=== PATIENT | female | born 1985 | race Caucasian/White ===

== ENCOUNTER 2016-10-26 06:34 | Emergency (ER) | payer OTHER ==
[~2016-10-26] VITALS: Ht 157.5 cm; Wt 43.2 kg
[~2016-10-26 06:34] MED LIST: ACET325T51 PO; GABA-502 PO; HYDR-3740 PO; METH500T PO; NPR500T PO; PRE20 PO
[2016-10-26 06:37] VITALS: BP 132/90; PULSE 98; RESP 14; O2SAT 100
--- NOTE | 2016-10-26 06:47 | ED.REPORT ---
HPI-General Illness Date of Service Oct 26, 2016 ED Provider: Benitez San MD The patient is a 30 year old female with history of fibromyalgia who presents to the emergency department complaining of nausea and vomiting that began 3 days ago. She denies any blood in her emesis. Her last episode of vomiting was this morning. She has also experienced abdominal pain, decreased appetite, decreased PO intake, generalized weakness, fatigue, malaise, and body aches. Today she started having diarrhea. She denies blood in her stools. No one else at home is sick with similar symptoms. Nursing Notes Stated Complaint: SICK Chief Complaint: FLU/Cold Symptoms Nursing Notes Reviewed: Yes Allergies: Coded Allergies: No Known Allergies (Unverified , 12/23/15) Scheduled Gabapentin (Gabapentin) 300 Mg Capsule 300 MG PO TID Methocarbamol (Robaxin) 500 Mg Tablet 500 MG PO TID Prednisone (PredniSONE) 20 Mg Tablet 40 MG PO DAILY Scheduled PRN Acetaminophen (Acetaminophen) 325 Mg Tablet 650 MG PO DAILY PRN PRN For Fever Hydrocodone-Acetaminophen 10-325 mg (Hydrocodone-Acetaminophen 10-325 mg) 1 Each Tablet 1-2 TABLET PO Q6H PRN PRN For Pain Naproxen (Naproxen) 500 Mg Tab 500 MG PO BID PRN PRN For Pain Ondansetron ODT (Zofran ODT) 4 Mg Tablet 4 MG PO Q4H PRN PRN For Nausea General Time Seen by MD: 06:40 Chief Complaint Vomiting Hx Obtained From: Patient Arrived By: Walk-in Sudden in Onset?: Yes Onset Occurred: 3 days ago Symptom Duration: Since onset Location: : Abdomen Quality: Painful Severity: Current: Moderate Severity: Maximum: Moderate Recent Healthcare: No recent doctor visit, No recent hospitalization Similar Sx Previous: No Past Medical History Past Medical History Fibromyalgia Torticollis Torn cervical disk Past Surgical History denies Smoking History Current Every Day Smoker Social History Alcohol Use: Denies alcohol use Drug Use: THC Ambulatory Status Independent Review of Systems Full Review of Systems Constitutional: Reports: Fatigue, Malaise, Weakness - generalized GI: Reports: Abdominal pain, Anorexia, Diarrhea, Nausea, Vomiting, Denies: Bloody/tarry stool, Hematemesis, Hematochezia Musculoskeletal: Reports: Myalgia Complete sys rev & neg: except as marked. Physical Exam Vital Signs Vital Signs Date Time Temp Pulse Resp B/P Pulse Ox O2 Delivery O2 Flow Rate FiO2 10/26/16 06:37 36.1 98 14 132/90 100 Room Air Initial VS: Reviewed Head / Eyes: Atraumatic, Normocephalic, PERRL ENT: Mucous membranes moist, Conjunctiva normal, No scleral icterus Neck: Supple, Non-tender, Full range of motion Respiratory: Breath sounds normal, Clear to auscultation, No respiratory distress Cardiovascular: Regular rate & rhythm, Heart sounds normal, Intact distal pulses Lymphatic: No lymphadenopathy Extremities: Vascular intact, Neuro intact, No swelling, No tenderness Skin: Warm, Dry, No cyanosis Neurologic: Alert, Oriented, Nonfocal Psychiatric: Mood/affect normal, Behavior normal, Normal thought content General/Constitutional: Awake, Alert, Cooperative Abdomen: Soft, No guarding, No rebound, BS normoactive, No distention Tenderness/Guarding/Rebound: Negative: Tender RLQ... Mild left-sided abdominal tenderness. Interpretation & Diagnostics Lab Results Interpretation Result Diagram: 10/26/16 0730 10/26/16 0730 Test 10/26/16 07:30 White Blood Count 6.6th/mm3 (3.8-10.1) Red Blood Count 4.74mil/mm3 (3.90-5.20) Hemoglobin 15.4g/dL (12.0-15.6) Hematocrit 43.9% (35.0-46.0) Mean Corpuscular Volume 92.6fL (81-100) Mean Corpuscular Hemoglobin 32.5pg (27.0-35.0) Mean Corpuscular Hemoglobin Concent 35.1% (32.0-37.0) Red Cell Distribution Width 12.6% (12.3-15.4) Platelet Count 239bil/L (150-400) Neutrophils (%) (Auto) 61.6% (40-74) Lymphocytes (%) (Auto) 29.0% (14-46) Monocytes (%) (Auto) 8.3% (4-12) Eosinophils (%) (Auto) 0.6% (0-5) Basophils (%) (Auto) 0.3% (0-3) Sodium Level 138mEq/L (134-144) Potassium Level 4.2mEq/L (3.5-5.2) Chloride Level 101mEq/L (97-108) Carbon Dioxide Level 22mmol/L (18-29) Blood Urea Nitrogen 21mg/dL (6-20) Creatinine 0.60mg/dL (0.57-1.00) Estimat Glomerular Filtration Rate 166mL/min (>59) Glucose Level 91mg/dL (60-99) Calcium Level 9.3mg/dL (8.5-10.1) Magnesium Level 2.0mg/dL (1.6-2.6) Total Bilirubin 0.6mg/dL (0.0-1.2) Aspartate Amino Transf (AST/SGOT) 21U/L (0-50) Alanine Aminotransferase (ALT/SGPT) 18U/L (0-32) Alkaline Phosphatase 57U/L (25-150) Total Protein 7.6g/dL (6.4-8.4) Albumin 4.6g/dL (3.4-5.0) Lipase 16U/L (13-60) Hold Noel Top Tube Received (Received) Re-Eval/Medical Decision Med Decision/Clinical Course 30-year-old female with nausea vomiting diarrhea 3 days. Vital signs stable. Abdomen is soft no peritoneal signs. Labs are unremarkable. Patient felt better with 1 L normal saline and Zofran. Likely viral. Patient will be discharged home with return precautions, Zofran when necessary. Follow-up primary doctor tomorrow. Source of Hx: Old records Time of Eval: 09:05 Re-Evaluation/Progress Note: Rechecked the patient. Discussed plan for discharge. All questions were addressed. Counseled Regarding: Diagnosis, Lab results, Need for follow-up, When/why to return to ED Discharge & Departure Primary Impression: Viral syndrome Additional Impression: Nausea, vomiting, and diarrhea Disposition: Home Discharge Condition All VS Reviewed: Yes Condition: Stable Additional Instructions: Thank you for entrusting us with your care today. Your labs today are reassuring. Use Zofran as needed for your nausea and vomiting. Make sure to rest and drink fluids as tolerated. Followup with your regular doctor in the next few days. Seek care for increased pain, uncontrollable vomiting, inability to keep fluids down, fever, or any other new or concerning symptoms. Referrals: Pk Montero MD (PCP) Scribe Attestation Portions of this note were transcribed by Swati Schroeder. I, Dr. San personally performed the history, physical exam and medical decision-making; I reviewed and confirmed the accuracy of the information in the transcribed note. Signed by: Lauren Wade, 10/26/2016 at 0915. copies to: Pk Montero MD, Ben M MD Oct 26, 2016 06:47 Swati Schroeder Oct 26, 2016 06:50
[2016-10-26] MEDS ORDERED: 0.9% Sodium Chloride 1,000 ML IV ONE (06:55)
[2016-10-26 07:41] LABS: BASOPHILS % (AUTO) 0.3 % (0-3); EOSINOPHILS % (AUTO) 0.6 % (0-5); MONOCYTES % (AUTO) 8.3 % (4-12); Mean Corpuscular Hemoglobin 32.5 pg (27.0-35.0); Mean Corpuscular Volume 92.6 fL (81-100); NEUTROPHILS % (AUTO) 61.6 % (40-74); Platelet Count 239 bil/L (150-400)
[2016-10-26] MEDS: Ondansetron 2 mg/mL 2 mL Inj IVPUSH PRN ×2 (07:43→09:31)
[2016-10-26] MEDS ORDERED: ONDA4TAB9 PO (09:08)
[2016-10-26 09:31] VITALS: BP 113/74; PULSE 79; RESP 18; O2SAT 98
== END 2016-10-26 09:33 | disposition home or self-care (01) ==
LOC: SED 06:34
DX: B34.9 Viral infection, unspecified (principal); R11.2 Nausea with vomiting, unspecified; R19.7 Diarrhea, unspecified; R10.9 Unspecified abdominal pain; M79.7 Fibromyalgia; F17.200 Nicotine dependence, unspecified, uncomplicated
CPT/HCPCS: 36415; 80053; 83690; 83735; 85025; 96361; 96374; 96375; 96376; 99285; J2270; J2405; J7030